=== PATIENT | female | born 1950 | race Caucasian/White ===

== ENCOUNTER 2017-01-10 06:01 | Day surgery (SDC) | payer MEDICARE ==
[2017-01-04 10:16] VITALS: BP 175/91
[~2017-01-10] VITALS: Ht 162.6 cm; Wt 64.0 kg
[~2017-01-10 06:01] MED LIST: BENA20TA2 PO; LEVO50TA5 PO; OXYC1TAB9 PO; SIMV20TA3 PO; SULF500T36 PO; TIZA4TAB PO; VENL225T PO
[2017-01-10] MEDS ORDERED: LACTATED RINGERS 1,000 ML IV SCH (06:35)
[2017-01-10] MEDS ORDERED: MIDAZOLAM 1 MG/ML, 2ML ONE (06:56)
[2017-01-10] MEDS ORDERED: BUPIVACAINE/PF 0.5% ONE (06:56)
[2017-01-10] MEDS ORDERED: HYDROmorphone 1 MG/ML, 1ML ONE ×2 (06:56→08:57)
[2017-01-10] MEDS ORDERED: FENTANYL PF 100 MCG/2ML ONE ×2 (06:56→08:57)
[2017-01-10] MEDS ORDERED: EPINEPHRINE 1 MG/ML, 1ML ONE (06:57)
[2017-01-10] MEDS ORDERED: PLEASE ENTER HEIGHT AND WEIGHT MC SCH (07:00)
[2017-01-10] MEDS ORDERED: LIDOCAINE 1%, 2ML SQ PRN (07:00)
[2017-01-10 07:18] LABS: BLOOD UREA NITROGEN 15 mg/dL (7-18)
[2017-01-10 07:21] LABS: ASPARTATE AMINO TRANSFERASE 23 U/L (15-37)
[2017-01-10] MEDS ORDERED: HYDROmorphone 1 MG/ML, 1ML IV PRN (07:30)
[2017-01-10] MEDS ORDERED: ONDANSETRON 2MG/ML, 2ML IVPush PRN (07:30)
[2017-01-10] MEDS ORDERED: OXYcodone 5 MG/5 ML ORAL.SOL UDC PO PRN (07:30)
[2017-01-10] MEDS ORDERED: KETOROLAC 30 MG/1 ML IV PRN (07:30)
[2017-01-10] MEDS ORDERED: ACETAMINOPHEN 325 MG TABLET PO PRN (07:30)
[2017-01-10] MEDS ORDERED: HYDROcodone/APAP 7.5-325MG/15ML UDC PO PRN (07:30)
[2017-01-10] MEDS ORDERED: CEFAZOLIN 1,000 MG ONE (07:40)
[2017-01-10] MEDS ORDERED: PROPOFOL 10 MG/ML, 20ML ONE (07:40)
[2017-01-10] MEDS ORDERED: PHENYLEPHRINE 10 MG/ML ONE (07:40)
[2017-01-10] MEDS ORDERED: ONDANSETRON 2MG/ML, 2ML ONE ×2 (07:40→09:02)
[2017-01-10] MEDS ORDERED: DEXAMETHASONE 4 MG/ML, 1ML ONE (07:40)
[2017-01-10] MEDS ORDERED: METOCLOPRAMIDE 5 MG/ML, 2ML IV PRN (08:00)
[2017-01-10] MEDS ORDERED: PROMETHAZINE 25 MG/ML, 1ML IV PRN (08:00)
[2017-01-10] MEDS ORDERED: OXYcodone 5 MG/5 ML ORAL.SOL UDC ONE (08:57)
[2017-01-10] MEDS ORDERED: ACETAMINOPHEN 650 MG/20.3 ML UDC ONE (08:57)
[2017-01-10] MEDS: FENTANYL PF 100 MCG/2ML IV PRN ×2 (09:00→09:17)
== END 2017-01-10 11:50 ==
LOC: OUT 06:01
PROVIDERS: ATTEND Orthopaedic Surgery Adult Reconstructive Orthopaedic Surgery
DX: M25.861 Other specified joint disorders, right knee (principal); M65.861 Other synovitis and tenosynovitis, right lower leg; M67.51 Plica syndrome, right knee; E03.9 Hypothyroidism, unspecified; E78.5 Hyperlipidemia, unspecified; Z88.8 Allergy status to other drugs, medicaments and biological substances; Z87.39 Personal history of other diseases of the musculoskeletal system and connective tissue; Z96.651 Presence of right artificial knee joint
CPT/HCPCS: 29875; 36415; 80053; 93005; J0171; J0690; J1100; J1170; J2250; J2370; J2405; J2704; J3010; J3490